=== PATIENT | male | born 1955 | race Caucasian/White ===

== ENCOUNTER 2017-05-23 11:00 | Emergency (ER) | payer MEDICAID, OTHER ==
[~2017-05-23] VITALS: Ht 165.1 cm; Wt 68.5 kg
[2017-05-23 11:07] VITALS: Ht 165.1 cm; Wt 68.5 kg
[2017-05-23] MEDS ORDERED: morphine 4 MG/ML VIAL IV STA (11:39)
--- NOTE | 2017-05-23 11:44 | ERD ---
ER Documentation Chief Complaint Date/Time DATE: 05/23/17 TIME: 11:42 Chief Complaint Complains of a fall from a 10 foot ladder HPI Patient is a 62-year-old male who presents with sudden onset, constant, moderate pain to his head, posterior neck and upper back, and anterior chest after slipping from a scaffolding and falling 10 feet to the ground. He denies loss of consciousness. He denies shortness of breath. He denies numbness or tingling in his extremities. He denies abdominal pain or low back pain. He denies vomiting. Last tetanus is unknown. ROS All systems reviewed and are negative except as per history of present illness. Medications Home Meds Active Scripts Bacitracin-Polymyxin* (Polysporin* Topical) 28.35 Gm Oint, 1 APPLIC TOP BID for 5 Days, TUB Prov:IRENE ERWIN MD 05/23/17 Tramadol HCl (Tramadol HCl) 50 Mg Tablet, 50 MG PO Q4 Y for PAIN, #20 TAB Prov:IRENE ERWIN MD 05/23/17 Allergies Allergies: Coded Allergies: No Known Allergy (Unverified , 05/23/17) PMhx/Soc Past medical history: Denies Past surgical history: Denies Social history: Denies tobacco or alcohol Medical and Surgical Hx: pt denies Medical Hx, pt denies Surgical Hx History of Surgery: No Anesthesia Reaction: No Hx Neurological Disorder: No Hx Respiratory Disorders: No Hx Cardiac Disorders: No Hx Psychiatric Problems: No Hx Miscellaneous Medical Probl: No Hx Alcohol Use: No Hx Substance Use: No Hx Tobacco Use: No Smoking Status: Never smoker FmHx Family History: No coronary disease, No diabetes Physical Exam Vitals Vital Signs Date Time Temp Pulse Resp B/P Pulse Ox O2 Delivery O2 Flow Rate FiO2 05/23/17 14:32 98.3 92 20 140/94 98 Room Air 05/23/17 13:39 98.3 81 20 146/95 99 Room Air 05/23/17 11:07 98.3 89 20 157/84 97 Physical Exam Const: Alert, no acute distress Head: Abrasion to vertex of scalp. Eyes: Normal Conjunctiva, no pallor, no icterus. Pupils equal round and reactive. ENT: Normal External Ears, Nose and Mouth. Mucous membranes moist Neck: Midline tenderness. Bruising to skin overlying T1. Resp: Clear to auscultation bilaterally, no wheezes, trace rales at right base. Cardio: Regular rate and rhythm, no murmurs. Sternal tenderness on direct palpation, and on palpation of lateral ribs. Abd: Soft, non tender, non distended. Normal bowel sounds Skin: No petechiae or rashes Back: Upper thoracic midline tenderness. No flank tenderness. No lumbar tenderness. Ext: No cyanosis, or edema Neur: Awake and alert, strength and sensation full in 4 extremities. Psych: Normal Mood and Affect Result Diagram: 05/23/17 1200 05/23/17 1200 Results 24 hrs Laboratory Tests Test 05/23/17 12:00 White Blood Count 14.110^3/ul Red Blood Count 4.7610^6/ul Hemoglobin 14.6g/dl Hematocrit 43.7% Mean Corpuscular Volume 91.8fl Mean Corpuscular Hemoglobin 30.7pg Mean Corpuscular Hemoglobin Concent 33.4g/dl Red Cell Distribution Width 12.5% Platelet Count 78345^3/UL Mean Platelet Volume 10.1fl Neutrophils % 82.1% Lymphocytes % 10.1% Monocytes % 6.5% Eosinophils % 0.4% Basophils % 0.3% Nucleated Red Blood Cells % 0.0/100WBC Neutrophils # 11.610^3/ul Lymphocytes # 1.410^3/ul Monocytes # 0.910^3/ul Eosinophils # 0.110^3/ul Basophils # 0.010^3/ul Nucleated Red Blood Cells # 0.010^3/ul Prothrombin Time 12.6Sec Prothrombin Time Ratio 1.0 INR International Normalized Ratio 0.94 Activated Partial Thromboplast Time 24.9Sec Sodium Level 140mmol/L Potassium Level 3.6mmol/L Chloride Level 104mmol/L Carbon Dioxide Level 27mmol/L Anion Gap 13 Blood Urea Nitrogen 13mg/dl Creatinine 0.93mg/dl Glucose Level 127mg/dl Calcium Level 9.3mg/dl Troponin I < 0.012ng/ml Current Medications Medications (Trade) Dose Ordered Sig/Danny Route PRN Reason Start Time Stop Time Status Last Admin Dose Admin Morphine Sulfate (morphine) 4 mg ONCE STAT IV 05/23/17 11:39 05/23/17 11:43 DC 05/23/17 11:59 Diphtheria/ Tetanus/Acell Pertussis (Adacel) 0.5 ml ONCE ONCE IM* 6/23/17 12:00 05/23/17 12:01 DC 05/23/17 12:00 Procedures/MDM EKG read by me: Time 1157, rate 100 Rhythm: Normal sinus [place]: Normal Intervals: Normal ST-T waves: no ischemic changes Ectopy: No Q-waves: No Impression: No evidence of ischemia or arrhythmia MDM: Patient is a 62-year-old male who fell from a 10 foot scaffolding after the scaffolding became unsteady and he lost his balance. There is no loss of consciousness or symptoms that preceded his fall. He landed on his head, had neck and thoracic spine tenderness, and complained of sternal tenderness. CTs of the head, cervical spine, and chest were unremarkable. There are no evidence of extremity injuries, lumbar spine or abdominal or pelvic injuries on exam. The patient is hemodynamically stable. He does not have any postconcussive symptoms. He has an abrasion to his scalp. His tetanus is updated. He will be discharged with tramadol for pain, topical antibiotic for abrasions, and instructions for return precautions in case of worsening symptoms. Departure Diagnosis: Primary Impression: Head contusion Encounter type: initial encounter Contusion of head detail: scalp Qualified Code: S00.03XA - Contusion of scalp, initial encounter Additional Impressions: Chest wall pain Fall with significant injury Encounter type: initial encounter Qualified Code: W19.XXXA - Fall with significant injury, initial encounter Condition: Stable IRENE ERWIN MD May 23, 2017 11:44
[2017-05-23] MEDS ORDERED: DIPHTH/TET/ACEL PERTUSS (ADULT) 0.5 ML VIAL IM* ONE (12:00)
[2017-05-23 12:11] LABS: ADD SCAN DIFF NO
[2017-05-23 12:13] LABS: BASOPHILS % 0.3 % (0.0-2.0); EOSINOPHILS # 0.1 10^3/ul (0.0-0.5); EOSINOPHILS % 0.4 % (0.0-7.0); HEMATOCRIT 43.7 % (42.0-52.0); HEMOGLOBIN 14.6 g/dl (14.0-18.0); LYMPHOCYTES # 1.4 10^3/ul (0.8-2.9); LYMPHOCYTES % 10.1 % (15.0-51.0); MEAN CORPUSCULAR HEMOGLOBIN 30.7 pg (29.0-33.0); MEAN CORPUSCULAR HGB CONC 33.4 g/dl (32.0-37.0); MEAN CORPUSCULAR VOLUME 91.8 fl (82.0-101.0); MEAN PLATELET VOLUME 10.1 fl (7.4-10.4); MONOCYTE # 0.9 10^3/ul (0.3-0.9); MONOCYTES % 6.5 % (0.0-11.0); NEUTROPHIL # 11.6 10^3/ul (1.6-7.5); NEUTROPHILS % 82.1 % (39.0-77.0); PLATELET COUNT 212 10^3/UL (140-415); RED BLOOD COUNT 4.76 10^6/ul (4.70-6.10); RED CELL DISTRIBUTION WIDTH 12.5 % (11.5-14.5); WHITE BLOOD COUNT 14.1 10^3/ul (4.8-10.8)
[2017-05-23 12:29] LABS: ANION GAP 13 (8-16); BLOOD UREA NITROGEN 13 mg/dl (7-20); CALCIUM 9.3 mg/dl (8.4-10.2); CARBON DIOXIDE 27 mmol/L (21-31); CHLORIDE 104 mmol/L (97-110); CREATININE 0.93 mg/dl (0.61-1.24); GLUCOSE 127 mg/dl (70-220); POTASSIUM 3.6 mmol/L (3.5-5.1); SODIUM 140 mmol/L (135-144)
[2017-05-23 12:30] LABS: INR 0.94; PROTIME 12.6 Sec (12.2-14.2)
[2017-05-23 12:31] LABS: PARTIAL THROMBOPLASTIN TIME 24.9 Sec (25.0-35.0)
[2017-05-23 12:51] LABS: TROPONIN-I < 0.012 ng/ml (0.00-0.12)
--- NOTE | 2017-05-23 13:36 | RADRPT ---
PROCEDURE: CT Brain without contrast. CLINICAL INDICATION: Trauma due to a fall from the roof. Headache. TECHNIQUE: A CT of the brain without contrast was performed utilizing axial sections from the skul l base through the vertex. The patient was scanned without intravenous contrast enhancement. Sagitta l and coronal reformatted images were obtained using the data from the axial images. Total exam DLP is 630.20 mGy-cm. CTDIvol is 43.86 mGy. One or more of the following dose reduction techniques we re used: Automated exposure control, adjustment of the mA and/or kV according to patient size, use o f iterative reconstruction technique. COMPARISON: None available FINDINGS: There is normal camilo-white matter differentiation. The ventricles and cisterns are normal. There is no intracranial hemorrhage. There is a midline posterior fossa benign arachnoid cyst measu ring 2.2 x 3.8 cm. There is no other intracranial space-occupying lesion. There is no skull fracture or lytic lesion. IMPRESSION: 1. Midline posterior fossa benign arachnoid cyst measuring 2.2 x 3.8 cm. 2. Otherwise unremarkable noncontrast CT scan of the brain. 3. No intracranial hemorrhage. RPTAT: QQ .Jared Ashley MD, MD Date Time Electronically viewed and signed by .Jared Ashley MD, on 05/23/2017 13:35 .R/
--- NOTE | 2017-05-23 13:39 | RADRPT ---
PROCEDURE: CT Cervical Spine without contrast. CLINICAL INDICATION: Trauma due to falling off the roof. Neck pain. TECHNIQUE: Helical axial sections were obtained through the cervical spine without intravenous con trast enhancement. Sagittal and coronal reformatted images were accomplished using the data from th e axial images. Total exam DLP is 434.56 mGy-cm. CTDIvol is 22.15 mGy. One or more of the followi ng dose reduction techniques were used: Automated exposure control, adjustment of the mA and/or kV a ccording to patient size, use of iterative reconstruction technique. COMPARISON: No prior studies are available for comparison. FINDINGS: There is normal stature and alignment of the vertebrae. There is no fracture. The disk height is normal. There is right-sided bony foraminal stenosis at C4-5 due to hypertrophy of the right facet joint and uncovertebral joint. The neural foramina are otherwise normal. There is no lytic or blastic lesion. The paravertebral soft tissues are normal. IMPRESSION: 1. Right-sided bony foraminal stenosis at C4-5. 2. No fracture or malalignment. 3. Otherwise unremarkable CT scan of the cervical spine. RPTAT: QQ .Jared Ashley MD, MD Date Time Electronically viewed and signed by .Jared Ashley MD, MD on 05/23/2017 13:39 .R/
--- NOTE | 2017-05-23 14:01 | RADRPT ---
PROCEDURE: CT Chest without contrast. CLINICAL INDICATION: Chest pain after trauma. TECHNIQUE: CT scan of the chest without contrast was performed on a multi-slice CT scanner. The p atient was scanned without intravenous contrast. Coronal and sagittal reformatted images were obtai george from the axial source images. The total exam CTDI equals 9.58 mGy and the total exam DLP equals 382.9 mGy-cm. COMPARISON: None available FINDINGS: There are no enlarged mediastinal or axillary lymph nodes identified. The camacho are not well evaluat e given lack of intravenous contrast. There is no evidence of pneumomediastinum or mediastinal hemat kathy. The heart is normal in size, and there is no pericardial effusion. Atherosclerotic calcificatio ns are present There is mild to moderate bilateral posterior lower lobe subsegmental atelectasis and/or scarring. No pulmonary infiltrate or pulmonary contusion is identified. There is a small calcified granuloma in the base of the right upper lobe no pulmonary mass or suspicious pulmonary nodules identified. T here is no pneumothorax or hemothorax. No pleural effusion is identified. The partially imaged subdiaphragmatic contents are within normal limits. The bones are intact. Specifically, there is no evidence of rib fracture or the thoracic vertebral b shirley fracture. There are mild degenerative change of the spine. IMPRESSION: 1. Mild bilateral posterior lower lobe subsegmental atelectasis and/or scarring. 2. Atherosclerotic vascular disease. 3. No CT evidence of traumatic injury in the chest. RPTAT: KK .Artur Coley MD, MD Date Time Electronically viewed and signed by .Artur Coley MD, MD on 05/23/2017 14:01 .B/
[2017-05-23 14:32] VITALS: BP 140/94; PULSE 92; RESP 20; TEMP 98.3
[2017-05-23] MEDS ORDERED: TRAM50TA2 PO (14:36)
[2017-05-23] MEDS ORDERED: POLY30OI TOP (14:36)
== END 2017-05-23 14:50 | disposition home or self-care (01) ==
LOC: E/R 11:00
DX: S00.03XA Contusion of scalp, initial encounter (principal); S29.9XXA Unspecified injury of thorax, initial encounter; R07.89 Other chest pain; W11.XXXA Fall on and from ladder, initial encounter; Y92.9 Unspecified place or not applicable; Z23 Encounter for immunization
CPT/HCPCS: 36415; 70450; 71250; 72125; 80048; 84484; 85025; 85610; 85730; 90471; 90715; 93005; 96374; J2270; Z7502

== ENCOUNTER 2017-06-24 10:08 | Emergency (ER) | payer MEDICAID, OTHER ==
[~2017-06-24] VITALS: Ht 167.6 cm; Wt 69.0 kg
[~2017-06-24 10:08] MED LIST: POLY30OI TOP; TRAM50TA2 PO
[2017-06-24 10:10] VITALS: Ht 167.6 cm; Wt 69.0 kg
[2017-06-24 10:49] LABS: BASOPHIL # 0.1 10^3/ul (0.0-0.1); BASOPHILS % 0.8 % (0.0-2.0); EOSINOPHILS # 0.5 10^3/ul (0.0-0.5); EOSINOPHILS % 7.5 % (0.0-7.0); HEMATOCRIT 44.9 % (42.0-52.0); HEMOGLOBIN 15.4 g/dl (14.0-18.0); LYMPHOCYTES # 3.2 10^3/ul (0.8-2.9); LYMPHOCYTES % 44.8 % (15.0-51.0); MEAN CORPUSCULAR HEMOGLOBIN 30.7 pg (29.0-33.0); MEAN CORPUSCULAR HGB CONC 34.3 g/dl (32.0-37.0); MEAN CORPUSCULAR VOLUME 89.4 fl (82.0-101.0); MEAN PLATELET VOLUME 10.4 fl (7.4-10.4); MONOCYTE # 0.6 10^3/ul (0.3-0.9); MONOCYTES % 8.9 % (0.0-11.0); NEUTROPHIL # 2.7 10^3/ul (1.6-7.5); NEUTROPHILS % 37.7 % (39.0-77.0); PLATELET COUNT 209 10^3/UL (140-415); RED BLOOD COUNT 5.02 10^6/ul (4.70-6.10); RED CELL DISTRIBUTION WIDTH 12.2 % (11.5-14.5); WHITE BLOOD COUNT 7.1 10^3/ul (4.8-10.8)
[2017-06-24 11:21] LABS: ANION GAP 20 (8-16); BLOOD UREA NITROGEN 12 mg/dl (7-20); CALCIUM 9.5 mg/dl (8.4-10.2); CARBON DIOXIDE 25 mmol/L (21-31); CHLORIDE 102 mmol/L (97-110); CREATININE 0.88 mg/dl (0.61-1.24); GLUCOSE 96 mg/dl (70-220); POTASSIUM 3.8 mmol/L (3.5-5.1); SODIUM 143 mmol/L (135-144)
[2017-06-24 11:32] LABS: INR 0.94; PROTIME 12.6 Sec (12.2-14.2)
[2017-06-24 11:33] LABS: PARTIAL THROMBOPLASTIN TIME 28.5 Sec (25.0-35.0); TROPONIN-I < 0.012 ng/ml (0.00-0.12)
[2017-06-24] MEDS ORDERED: IBUP-1542 PO (11:42)
--- NOTE | 2017-06-24 11:43 | RADRPT ---
PROCEDURE: XR Chest. CLINICAL INDICATION: Chest Pain. TECHNIQUE: Single frontal view of the chest was obtained COMPARISON: CT chest 05/23/2017 FINDINGS: The heart and mediastinum are within normal limits. Mild ill-defined opacities at both lung bases are compatible with mild bibasilar atelectasis and / o r scarring. Superimposed left basilar early consolidation cannot be completely excluded. No pneumothorax or significant pleural effusion is seen. No evidence of significant pulmonary vascular congestion. There are degenerative changes of the visualized spine. IMPRESSION: Mild bibasilar ill-defined opacities (greater on the left and right), likely representing mild bibas ilar atelectasis and / or scarring, as seen on prior CT chest. Superimposed left basilar early cons olidation cannot be completely excluded. RPTAT: PP Physician Ifrah Date Time Electronically viewed and signed by Tom Saleh Physician on 06/24/2017 11:43 RADHAMES/
--- NOTE | 2017-06-24 11:46 | ERD ---
ER Documentation Chief Complaint Date/Time DATE: 06/24/17 TIME: 1016 Chief Complaint left sided chest pain x 2 days HPI 62-year-old male presents the emergency department complaining of left-sided chest pain. Patient was in his usual state of health until approximately 4 weeks ago which time he fell and hit his back and chest. He states he had x-rays of his back which were normal but never had x-rays of his chest. He has been having a nonspecific somatic type discomfort to the left side of his chest since then. Over the last 2 days, to been associated with a burning in that area. The pain is worse when he moves. It is associated with no palpitations, shortness of breath or diaphoresis. Patient reports no nausea, vomiting, fevers. Patient reports no cough. Currently the patient's pain is described as mild. ROS All systems reviewed and are negative except as per history of present illness. Medications Home Meds Active Scripts Ibuprofen* (Motrin*) 600 Mg Tab, 600 MG PO Q6H Y for PAIN AND OR ELEVATED TEMP, #30 TAB Prov:JEAN-CLAUDE SANCHEZ 06/24/17 Discontinued Scripts Bacitracin-Polymyxin* (Polysporin* Topical) 28.35 Gm Oint, 1 APPLIC TOP BID for 5 Days, TUB Prov:IRENE ERWIN MD 05/23/17 Tramadol HCl (Tramadol HCl) 50 Mg Tablet, 50 MG PO Q4 Y for PAIN, #20 TAB Prov:IRENE ERWIN MD 05/23/17 Allergies Allergies: Coded Allergies: No Known Allergy (Unverified , 06/24/17) PMhx/Soc Medical and Surgical Hx: pt denies Medical Hx, pt denies Surgical Hx History of Surgery: No Anesthesia Reaction: No Hx Neurological Disorder: No Hx Respiratory Disorders: No Hx Cardiac Disorders: No Hx Psychiatric Problems: No Hx Miscellaneous Medical Probl: No Hx Alcohol Use: No Hx Substance Use: No Hx Tobacco Use: No Smoking Status: Never smoker FmHx Noncontributory with no history of coronary disease Physical Exam Vitals Vital Signs Date Time Temp Pulse Resp B/P Pulse Ox O2 Delivery O2 Flow Rate FiO2 06/24/17 10:43 93 17 137/100 97 Room Air 06/24/17 10:10 98.1 101 18 153/91 98 Physical Exam GENERAL: The patient is well developed and appropriate for usual state of health in no apparent distress HEENT: Pupils equal, round, and reactive to light. EOMI. There is no scleral icterus. NECK: C-spine is soft and supple, there is no meningismus. There is no cervical lymphadenopathy. LUNGS: Clear to auscultation bilaterally. There are no rales, wheezes or rhonchi. No significant chest wall tenderness, crepitus or instability HEART: Regular rate and rhythm, no murmurs, clicks, rubs or gallops. ABDOMEN: Soft, non-tender, non-distended. There are bowel sounds in all four quadrants. No rebound or guarding. EXTREMITIES: There is no peripheral cyanosis or edema. No focal swelling or erythema. NEURO: The patient moves all four extremities with 5/5 strength. Cranial nerves II - XII are intact. Normal gait. Alert and oriented SKIN: There is no apparent rash or petechiae. HEME/LYMPHATIC: There is no evidence of excessive bruising or lymphedema. PSYCHIATRIC: The patient does not appear anxious or depressed. Result Diagram: 06/24/17 1030 06/24/17 1030 Results 24 hrs Laboratory Tests Test 06/24/17 10:30 White Blood Count 7.110^3/ul Red Blood Count 5.0210^6/ul Hemoglobin 15.4g/dl Hematocrit 44.9% Mean Corpuscular Volume 89.4fl Mean Corpuscular Hemoglobin 30.7pg Mean Corpuscular Hemoglobin Concent 34.3g/dl Red Cell Distribution Width 12.2% Platelet Count 94147^3/UL Mean Platelet Volume 10.4fl Neutrophils % 37.7% Lymphocytes % 44.8% Monocytes % 8.9% Eosinophils % 7.5% Basophils % 0.8% Nucleated Red Blood Cells % 0.0/100WBC Neutrophils # 2.710^3/ul Lymphocytes # 3.210^3/ul Monocytes # 0.610^3/ul Eosinophils # 0.510^3/ul Basophils # 0.110^3/ul Nucleated Red Blood Cells # 0.010^3/ul Prothrombin Time 12.6Sec Prothrombin Time Ratio 1.0 INR International Normalized Ratio 0.94 Activated Partial Thromboplast Time 28.5Sec Sodium Level 143mmol/L Potassium Level 3.8mmol/L Chloride Level 102mmol/L Carbon Dioxide Level 25mmol/L Anion Gap 20 Blood Urea Nitrogen 12mg/dl Creatinine 0.88mg/dl Glucose Level 96mg/dl Calcium Level 9.5mg/dl Troponin I < 0.012ng/ml Procedures/MDM Patient was taken to a room, seen and evaluated. Comfort measures were initiated. Diagnostic tests were ordered and reviewed. 3 LEAD RHYTHM STRIP: Normal sinus rhythm without ectopy EK lead EKG reviewed by myself: Normal Sinus Rhythm Normal [place] and intervals No ST elevation, depression, or T wave inversion Impression: Normal EKG RADIOLOGY: reviewed with the radiologist REEVALUATION: Patient remains comfortable and nonischemic appearing MEDICAL DECISION MAKING: Patient presents with chest pain of uncertain etiology. Differential diagnosis considered includes acute myocardial infarction , pulmonary embolism, as well as vascular and pulmonary concerns. I have reviewed the patient's clinical risk factors, EKG, lab studies and imaging. At this time, patient's history and clinical examination is most likely consistent with a musculoskeletal cause of chest pain. Patient has no significant ischemic risk factors and a normal EKG as well as a negative troponin. At this time, this appears to be a very low risk presentation for cardiac concerns. X-ray has ruled out significant pulmonary concerns and patient has no risk factors for pulmonary embolism. After discussing this with the patient, patient is comfortable as am I that the patient can be further evaluated as an outpatient with comfort measures. Departure Diagnosis: Primary Impression: Chest pain Condition: Stable Patient Instructions: Chest Pain, Uncertain Cause Referrals: OMAR WAY MD (PCP) Additional Instructions: See your doctor for follow-up as discussed. Take a copy of your test results, if appropriate, to this follow-up visit. See your doctor or return here if your symptoms do not improve as expected. At any time, please return to the emergency department for any change or worsening in her symptoms. JEAN-CLAUDE SANCHEZ Jun 24, 2017 11:46
[2017-06-24 12:17] VITALS: BP 130/90; PULSE 82; RESP 17
== END 2017-06-24 12:22 | disposition home or self-care (01) ==
LOC: E/R 10:08
DX: R07.9 Chest pain, unspecified (principal)
CPT/HCPCS: 36415; 71010; 80048; 84484; 85025; 85610; 85730; 93005

== ENCOUNTER 2018-12-15 11:37 | Inpatient (IN) | payer OTHER ==
[~2018-12-15] VITALS: Ht 170.2 cm; Wt 68.6 kg
[2018-12-15] VITALS (7 sets, daily range): BP systolic 131–179; BP diastolic 75–95; PULSE 68–75; RESP 18–22; Ht 170.2 cm; Wt 68.6 kg
[~2018-12-15 11:37] MED LIST changes: +IBUP-1542 PO; -POLY30OI TOP; -TRAM50TA2 PO
--- NOTE | 2018-12-15 13:36 | ERD ---
ER Documentation Chief Complaint Chief Complaint RLQ PAIN HPI The patient is a 63-year-old male, presenting to the ER because of right lower quadrant abdominal pain intermittently for the last 3 days, worse today, went to see his physician who referred him to the ER. He denies fever, chills, neck pain, chest pain, dyspnea, vomiting, dysuria, diarrhea. He does not smoke, drinks socially Past medical/surgical history: None ROS All systems reviewed and are negative except as per history of present illness. Medications Home Meds Discontinued Scripts Ibuprofen* (Motrin*) 600 Mg Tab, 600 MG PO Q6H PRN for PAIN AND OR ELEVATED TEMP, #30 TAB Prov:JEAN-CLAUDE SANCHEZ 06/24/17 Allergies Allergies: Coded Allergies: No Known Allergy (Unverified , 12/15/18) PMhx/Soc Medical and Surgical Hx: pt denies Medical Hx, pt denies Surgical Hx History of Surgery: No Anesthesia Reaction: No Hx Neurological Disorder: No Hx Respiratory Disorders: No Hx Cardiac Disorders: No Hx Psychiatric Problems: No Hx Miscellaneous Medical Probl: No Hx Alcohol Use: Yes (OOC) Hx Substance Use: No Hx Tobacco Use: No Smoking Status: Never smoker Physical Exam Vitals Vital Signs Date Temp Pulse Resp B/P (MAP) Pulse Ox O2 O2 Flow FiO2 Time Delivery Rate 12/15/18 97.8 70 16 138/79 99 Room Air 17:00 (98) 12/15/18 97.8 95 18 134/81 98 11:48 (98) Physical Exam Const: No acute distress. Head: Atraumatic. Eyes: Normal Conjunctiva. ENT: Normal External Ears, Nose and Mouth. Neck: Full range of motion. No meningismus. Resp: Clear to auscultation bilaterally. Cardio: Regular rate and rhythm. Abd: Soft, non distended, normal bowel sounds, mild to moderate right lower quadrant tenderness, no rigidity/rebound/CVA tenderness Skin: No petechiae or rashes. Back: No midline or flank tenderness. Ext: No cyanosis, or edema. Neur: Awake and alert. No focal deficit Psych: Normal Mood and Affect. Result Diagram: 12/15/18 1400 12/15/18 1400 Results 24 hrs Laboratory Tests Test 12/15/18 14:00 12/15/18 14:13 White Blood Count 8.5 10^3/ul Red Blood Count 5.02 10^6/ul Hemoglobin 15.4 g/dl Hematocrit 46.2 % Mean Corpuscular Volume 92.0 fl Mean Corpuscular Hemoglobin 30.7 pg Mean Corpuscular Hemoglobin Concent 33.3 g/dl Red Cell Distribution Width 12.3 % Platelet Count 251 10^3/UL Mean Platelet Volume 9.7 fl Immature Granulocytes % 0.200 % Neutrophils % 60.1 % Lymphocytes % 30.0 % Monocytes % 8.2 % Eosinophils % 1.1 % Basophils % 0.4 % Nucleated Red Blood Cells % 0.0 /100WBC Immature Granulocytes # 0.020 10^3/ul Neutrophils # 5.1 10^3/ul Lymphocytes # 2.6 10^3/ul Monocytes # 0.7 10^3/ul Eosinophils # 0.1 10^3/ul Basophils # 0.0 10^3/ul Nucleated Red Blood Cells # 0.0 10^3/ul Sodium Level 143 mmol/L Potassium Level 4.1 mmol/L Chloride Level 99 mmol/L Carbon Dioxide Level 30 mmol/L Anion Gap 14 Blood Urea Nitrogen 14 mg/dl Creatinine 0.80 mg/dl Est Glomerular Filtrat Rate mL/min > 60 mL/min Glucose Level 100 mg/dl Calcium Level 9.5 mg/dl Total Bilirubin 0.3 mg/dl Direct Bilirubin 0.00 mg/dl Indirect Bilirubin 0.3 mg/dl Aspartate Amino Transf (AST/SGOT) 16 IU/L Alanine Aminotransferase (ALT/SGPT) 20 IU/L Alkaline Phosphatase 115 IU/L Total Protein 8.6 g/dl Albumin 4.6 g/dl Globulin 4.00 g/dl Albumin/Globulin Ratio 1.15 Lipase 75 U/L Bedside Urine pH (LAB) 5.5 Bedside Urine Protein (LAB) Negative Bedside Urine Glucose (UA) Negative Bedside Urine Ketones (LAB) Negative Bedside Urine Blood Negative Bedside Urine Nitrite (LAB) Negative Bedside Urine Leukocyte Esterase (L Negative Current Medications Medications Dose Sig/Danny Start Time Status Last (Trade) Ordered Route PRN Stop Time Admin Dose Reason Admin Piperacillin 100 ml @ ONCE ONCE 12/15/18 DC 12/15/18 Sod/ 200 mls/hr IVPB 16:00 16:24 Tazobactam 12/15/18 16:29 Sod Sodium 1,000 ml @ Q1H ONCE 12/15/18 DC 12/15/18 Chloride 1,000 mls/hr IV 16:00 16:24 12/15/18 16:59 Morphine 2 mg ONCE STAT 12/15/18 DC Sulfate IV 15:45 (morphine) 12/15/18 15:47 Ondansetron 4 mg ONCE STAT 12/15/18 DC HCl (Zofran IV 15:45 Inj) 12/15/18 15:47 Procedures/MDM [place] [id number] Radiology Main Line: [phone] DIAGNOSTIC IMAGING REPORT Patient: SOPHY ARENAS : 1955 Age: 63 Sex: M MR #: [id number] DOS: 12/15/18 1345 Ordering MD: TISH HARDIN MD Location: E/R Room/Bed: PROCEDURE: CT Abdomen and Pelvis without contrast. CLINICAL INDICATION: Abdominal pain. TECHNIQUE: Routine axial tomographic images of the abdomen and pelvis were obtained from the domes of the diaphragm to the symphysis pubis. The patient was scanned withoutoral or intravenous contrast. Coronal and sagittal reformatted images were obtained from the axial source images. Images were reviewed on a high-resolution PACS workstation. The total exam CTDI equals 9.80 mGy and the total exam DLP equals 500.27 mGy-cm. One or more of the following dose reduction techniques were used: Automated exposure control, adjustment of the mA and / or kV according to patient size, or use of iterative reconstruction technique. DICOM images are available. COMPARISON: None. FINDINGS: The visualized portions of the lung bases demonstrate small blebs. Evaluation of the intra-abdominal solid organs is somewhat limited on this noncontrast examination. The liver appears normal in size. There is no intra or extrahepatic biliary dilatation. The gallbladder is unremarkable by CT criteria. The spleen, pancreas, and adrenal glands are unremarkable. The kidneys are symmetric in size. No renal, ureteral, or bladder calculi are identified. No perinephric inflammatory changes are identified. The urinary bladder is grossly unremarkable. The bowel demonstrates normal course and caliber. There is no evidence of bowel obstruction. The appendix is distended measuring 12 mm in diameter. There is periappendiceal fat stranding. No intraperitoneal free fluid, free air or abscess is identified. The prostate is mildly enlarged. No retroperitoneal, mesenteric, or inguinal lymphadenopathy is identified. The aorta is normal in caliber. There are small bilateral fat containing inguinal hernias. The osseous structures demonstrate degenerative changes of the spine. No significant subcutaneous soft tissue abnormalities are seen. IMPRESSION: 1. Acute appendicitis. No definite abscess is seen, although evaluation is limited secondary to absence of oral and IV contrast. 2. Mild enlargement prostate. 3. Small bilateral fat containing inguinal hernias. RPTAT: HH .Consuelo Orozco MD, MD Date Time Electronically viewed and signed by .Consuelo Orozco MD, MD on 12/15/2018 14:17 .G/ CC: TISH HARDIN MD [phone] MEDICAL MAKING DECISION: The patient is a 63-year-old male, presenting with acute appendicitis, was treated with Zosyn IV, 1 L IV, morphine 2 mg IV for pain, Zofran4 mg IV for nausea with good response The differential diagnoses considered include but are not limited to cholelithi asis, cholecystitis, choledocholithiasis, cholangitis, pancreatitis, hepatitis, gastritis, peptic ulcer disease, gastric ulcer, appendicitis, cystitis, diverticulitis, partial small bowel obstruction. Consultation: I discussed the patient with the on-call general surgeon Dr. Mehta at 4:30 PM, who was made aware of the lab, the treatment, the patient condition. He accepted the consult The differential diagnoses considered include but are not limited to cholelithiasis, cholecystitis, choledocholithiasis, cholangitis, pancreatitis, hepatitis, gastritis, peptic ulcer disease, gastric ulcer, appendicitis, cystitis, diverticulitis, partial small bowel obstruction. Departure Diagnosis: Primary Impression: Appendicitis Condition: Stable Comments The patient's blood pressure was elevated (>120/80) but appears stable without evidence of hypertension emergency or urgency. The patient was counseled about the risks of hypertension and urged to pursue outpatient monitoring and therapy within a week with their primary care physician. I discussed the findings with the patient. I discussed the patient with the hospitalist Dr Randall at 5:20 pm . who was made aware of the lab, the treatment, the patient condition. The patient is admitted to [facility] Disclaimer: Inadvertent spelling and grammatical errors are likely due to EHR/dictation software use and do not reflect on the overall quality of patient care. Also, please note that the electronic time recorded on this note does not necessarily reflect the actual time of the patient encounter. TISH HARDIN MD Dec 15, 2018 13:36
[2018-12-15] MEDS ORDERED: morphine 2 MG INJ IV STA (15:45)
[2018-12-15] MEDS ORDERED: ONDANSETRON 4 MG INJ IV STA (15:45)
[2018-12-15] MEDS ORDERED: PIPER-TAZO 3.375 GM IV (PMX) 100 ML IVPB ONE (16:00)
[2018-12-15] MEDS ORDERED: SOD CHLORIDE 0.9% 1,000 ML IV ONE (16:00)
[2018-12-15] MEDS ORDERED: SOD CHLORIDE 0.45% 1,000 ML IV SCH (19:03)
[2018-12-15] MEDS ORDERED: ONDANSETRON 4 MG INJ IV PRN ×3 (19:30→23:30)
[2018-12-15] MEDS ORDERED: morphine SULFATE/PF (2 MG/2 ML) SYG IV PRN (19:30)
[2018-12-15] MEDS ORDERED: NACL 0.9% 3 ML SYG IV SCH (19:30)
[2018-12-15] MEDS ORDERED: ACETAMINOPHEN 325 MG TAB PO PRN ×2 (19:30→23:30)
--- NOTE | 2018-12-15 20:12 | CONS ---
Date/Time of Note Date/Time of Note DATE: 12/15/18 TIME: 20:09 Assessment/Plan Assessment/Plan Assessment/Plan acute appendicitis , without evidence of perforation recommend laparoscopic appendectomy , possible open . risks benefots discussed . Patient understand sand wishes to proceed Result Diagram: 12/15/18 1400 12/15/18 1400 Results 24hrs Laboratory Tests Test 12/15/18 14:00 12/15/18 14:13 White Blood Count 8.5 Red Blood Count 5.02 Hemoglobin 15.4 Hematocrit 46.2 Mean Corpuscular Volume 92.0 Mean Corpuscular Hemoglobin 30.7 Mean Corpuscular Hemoglobin Concent 33.3 Red Cell Distribution Width 12.3 Platelet Count 251 # Mean Platelet Volume 9.7 Immature Granulocytes % 0.200 Neutrophils % 60.1 Lymphocytes % 30.0 Monocytes % 8.2 Eosinophils % 1.1 Basophils % 0.4 Nucleated Red Blood Cells % 0.0 Immature Granulocytes # 0.020 Neutrophils # 5.1 Lymphocytes # 2.6 Monocytes # 0.7 Eosinophils # 0.1 Basophils # 0.0 Nucleated Red Blood Cells # 0.0 Sodium Level 143 Potassium Level 4.1 Chloride Level 99 Carbon Dioxide Level 30 Anion Gap 14 H Blood Urea Nitrogen 14 Creatinine 0.80 Est Glomerular Filtrat Rate mL/min > 60 Glucose Level 100 Calcium Level 9.5 Total Bilirubin 0.3 Direct Bilirubin 0.00 Indirect Bilirubin 0.3 Aspartate Amino Transf (AST/SGOT) 16 Alanine Aminotransferase (ALT/SGPT) 20 Alkaline Phosphatase 115 Total Protein 8.6 H Albumin 4.6 Globulin 4.00 H Albumin/Globulin Ratio 1.15 Lipase 75 Bedside Urine pH (LAB) 5.5 Bedside Urine Protein (LAB) Negative Bedside Urine Glucose (UA) Negative Bedside Urine Ketones (LAB) Negative Bedside Urine Blood Negative Bedside Urine Nitrite (LAB) Negative Bedside Urine Leukocyte Esterase (L Negative Consultation Date/Type/Reason Admit Date/Time Dec 15, 2018 at 17:25 Date of Consultation: Dec 15, 2018 Type of Consult surgical consult Reason for Consultation abdominal pain , suspect acute appendicitis Hx of Present Illness patient presented to the ER with one of worsening abdominal pain . no prior symptoms CT shows 12 mm appendix with appendicolith WBC 8.5 Past Medical History Medications Current Medications Sodium Chloride 1,000 ml @ 75 mls/hr [id number] IV ; Start 12/15/18 at 19:03 IV Flush (NS 3 ml) 3 ml PER PROTOCOL IV ; Start 12/15/18 at 19:30 Ondansetron HCl (Zofran Inj) 4 mg Q4H PRN IV NAUSEA AND/OR VOMITING; Start 12/15/18 at 19:30 Acetaminophen (Tylenol Tab) 650 mg Q6H PRN PO PAIN LEVEL 1-3 OR FEVER; Start 12/15/18 at 19:30 Pantoprazole (Protonix Iv) 40 mg DAILY@06 IV ; Start 12/16/18 at 06:00 Piperacillin Sod/ Tazobactam Sod 100 ml @ 200 mls/hr TID IVPB ; Start 12/15/18 at 21:00 Morphine Sulfate (morphine SULFATE (PF)) 2 mg Q4H PRN IV SEVERE PAIN LEVEL 7- 10; Start 12/15/18 at 19:30 Allergies: Coded Allergies: No Known Allergy (Unverified , 12/15/18) Social History Smoking Status: Never smoker Exam/Review of Systems Vital Signs Vitals Vital Signs Date Temp Pulse Resp B/P (MAP) Pulse Ox O2 O2 Flow FiO2 Time Delivery Rate 12/15/18 97.8 70 17 126/75 99 Room Air 17:30 (92) Exam Gastrointestinal: tender (right lower quadrant ) Medications Medications Current Medications Sodium Chloride 1,000 ml @ 75 mls/hr [id number] IV ; Start 12/15/18 at 19:03 IV Flush (NS 3 ml) 3 ml PER PROTOCOL IV ; Start 12/15/18 at 19:30 Ondansetron HCl (Zofran Inj) 4 mg Q4H PRN IV NAUSEA AND/OR VOMITING; Start 12/15/18 at 19:30 Acetaminophen (Tylenol Tab) 650 mg Q6H PRN PO PAIN LEVEL 1-3 OR FEVER; Start 12/15/18 at 19:30 Pantoprazole (Protonix Iv) 40 mg DAILY@06 IV ; Start 12/16/18 at 06:00 Piperacillin Sod/ Tazobactam Sod 100 ml @ 200 mls/hr TID IVPB ; Start 12/15/18 at 21:00 Morphine Sulfate (morphine SULFATE (PF)) 2 mg Q4H PRN IV SEVERE PAIN LEVEL 7- 10; Start 12/15/18 at 19:30 DORY GRIFFITH MD Dec 15, 2018 20:12
[2018-12-15] MEDS ORDERED: PIPER-TAZO 3.375 GM IV (PMX) 100 ML IVPB SCH (21:00)
[2018-12-15] MEDS ORDERED: BUPIVACAINE 0.5%/EPI (SDV) 30 ML INJ ONE ×2 (21:30→21:33)
--- NOTE | 2018-12-15 22:09 | PREAC ---
Date/Time of Note Date/Time of Note DATE: 12/15/18 TIME: 22:08 Anesthesia Eval and Record Evaluation Time Pre-Procedure Interview DATE: 12/15/18 TIME: 22:08 Age 63 Sex male NPO: 8 hrs Preoperative diagnosis ACUTE APPENDICITIS Planned procedure LAP APPY Past Medical History Past Medical History: None Surgery & Anesthesia Issues No known issue Meds Anticoagulation: No Beta Cornelia within 24 hr: No Reason Beta Cornelia not given: Pt. not on B-Cornelia Discontinued Scripts Ibuprofen* (Motrin*) 600 Mg Tab, 600 MG PO Q6H PRN for PAIN AND OR ELEVATED TEMP, #30 TAB Prov:JEAN-CLAUDE SANCHEZ 06/24/17 Current Medications Sodium Chloride 1,000 ml @ 75 mls/hr [id number] IV ; Start 12/15/18 at 19:03 IV Flush (NS 3 ml) 3 ml PER PROTOCOL IV ; Start 12/15/18 at 19:30 Ondansetron HCl (Zofran Inj) 4 mg Q4H PRN IV NAUSEA AND/OR VOMITING; Start 12/15/18 at 19:30 Acetaminophen (Tylenol Tab) 650 mg Q6H PRN PO PAIN LEVEL 1-3 OR FEVER; Start 12/15/18 at 19:30 Pantoprazole (Protonix Iv) 40 mg DAILY@06 IV ; Start 12/16/18 at 06:00 Piperacillin Sod/ Tazobactam Sod 100 ml @ 200 mls/hr TID IVPB ; Start 12/15/18 at 21:00 Morphine Sulfate (morphine SULFATE (PF)) 2 mg Q4H PRN IV SEVERE PAIN LEVEL 7- 10; Start 12/15/18 at 19:30 Meds reviewed: Yes Allergies Coded Allergies: No Known Allergy (Unverified , 12/15/18) Allergies Reviewed: Yes Labs/Studies Labs Reviewed: Reviewed by anesthesiologist Result Diagram: 12/15/18 1400 12/15/18 1400 Laboratory Tests 12/15/18 14:00 test: N/A Studies: ECG (SR), CXR (N/A) Pre-procedure Exam Last vitals Vital Signs Date Temp Pulse Resp B/P (MAP) Pulse Ox O2 O2 Flow FiO2 Time Delivery Rate 12/15/18 98.2 71 20 131/75 97 19:43 (93) 12/15/18 Room Air 17:30 Airway: Adequate mouth opening Mallampati: Mallampati I Teeth: Normal Lung: Normal Heart: Normal ASA Physical Status ASA physical status: 1 Emergency: None Planned Anesthetic Nerve block: TAP (bilateral) Planned Pain Management Single shot nerve block Pre-operative Attestations Prior to commencing anesthesia and surgery, the patient was re-evaluated, there was verification of: *The patient's identity *The results of appropriate recent lab work and preoperative vital signs *The above evaluation not changing prior to induction *Anesthetic plan, risk benefits, alternative and complications discussed with patient/family; questions answered; patient/family understands, accepts and wishes to proceed. LADONNA CONNORS MD Dec 15, 2018 22:09
[2018-12-15] MEDS ORDERED: PROPOFOL 20 ML ONE ×2 (22:13→23:27)
[2018-12-15] MEDS ORDERED: ROCURONIUM 50 MG INJ ONE (22:13)
[2018-12-15] MEDS ORDERED: METOCLOPRAMIDE 10 MG INJ ONE (22:14)
[2018-12-15] MEDS ORDERED: ROPIVACAINE 0.5 % 30 ML VIAL ONE (22:14)
[2018-12-15] MEDS ORDERED: KETOROLAC 30 MG INJ ONE (22:14)
[2018-12-15] MEDS ORDERED: ONDANSETRON 4 MG INJ ONE (22:14)
[2018-12-15] MEDS ORDERED: DIPHENHYDRAMINE 50 MG INJ IV PRN (22:30)
[2018-12-15] MEDS ORDERED: LABETALOL HCL 20MG INJ IV PRN (22:30)
[2018-12-15] MEDS ORDERED: MEPERIDINE 25 MG INJ IV PRN (22:30)
[2018-12-15] MEDS ORDERED: hydrALAzine 20 MG INJ IV PRN (22:30)
[2018-12-15] MEDS ORDERED: HYDROmorphONE 1 MG/5 ML IV SYRINGE IV PRN ×3 (22:30)
[2018-12-15] MEDS ORDERED: CEFAZOLIN 1 GM INJ ONE (22:37)
--- NOTE | 2018-12-15 23:22 | OPR ---
Date/Time of Note Date/Time of Note DATE: 12/15/18 TIME: 23:17 Operative Report Free Text/Dictation Operative report Procedure Date: Dec 15, 2018 Preoperative Diagnosis Acute appendicitis Postoperative Diagnosis Same Operation/Procedure Performed Laparoscopic appendectomy Surgeon Dory Mehta MD see signature line Export Freight Clerk None Anesthesia Type: general Anesthesiologist: LADONNA CONNORS MD Estimated Blood Loss: 0 - 10 ml's Transfusion none Specimen Appendix Grafts/Implants none Tubes/Drains None Complications none Pt Condition Post Procedure: stable Disposition: PACU Indications Patient presented to the emergency room with 24-36-hour history of worsening abdominal pain migrating to the right lower quadrant on evaluation in the emergency room he was tender in the right lower quadrant CAT scan showed a markedly dilated appendix with possible appendicolith within it surgical consultation was requested I saw the patient and recommended that he undergo u rgent laparoscopic appendectomy with the possibility of open. The risk benefits alternatives were discussed patient agreed to proceed after details of procedure informed consent obtained Procedure Description Patient brought to the operating room placed in supine position general anesthesia administered with endotracheal intubation the patient was prepped and draped in standard sterile fashion orogastric tube inserted by anesthesia timeout was completed. A varies needle in the left upper quadrant was inserted at Rg's point insufflation delivered to maintain pneumoperitoneum at 15 mmHg throughout the procedure small stab incision was made just above the umbilicus and a 5 mm trocar was inserted under direct visualization with 30 degree 5 mm laparoscope. The Veress needle was identified there were no injuries and the varies needle was removed. Under direct visualization an infraumbilical 5 more trocar and a suprapubic 12 mm trocar were inserted. The cecum was somewhat red retroperitoneal and attachments along the cecum had to be divided with hook cautery. The appendix was noted to be markedly thickened and dilated with contracted in the mesoappendix. The tip of the appendix was able to be elevated out of the cavity in the retroperitoneum. The mesoappendix is markedly thickened and there was a desmoplastic reaction as the appendix was bluntly dissected off the retroperitoneal attachments. Once the appendix was elevated down to the base of the appendix a window was made in the mesoappendix and [place] 35 mm vascular load was used to apply across the base of the appendix. A second application along the mesoappendix staple lines were inspected for hemostasis and were controlled with monopolar cautery. A gauze was inserted and used to dry up some bleeding had been caused during the dissection. Bleeding was completely controlled. A specimen bag was inserted through the suprapubic port the appendix placed and this was brought through the port through the wound. The port was reinserted with gauze was retrieved final inspection showed no additional bleeding or concerns. The pneumoperitoneum was allowed to escape the trochars were removed the skin incision because closed by 4-0 Monocryl Dermabond for dressing patient was explained the operative brought recovery in stable condition Sponge needle count was correct x2 DORY MEHTA MD Dec 15, 2018 23:22
[2018-12-15] MEDS ORDERED: NEOSTIGMINE 3 MG/3 ML SYRINGE ONE (23:25)
[2018-12-15] MEDS ORDERED: METOPROLOL 5 MG INJ ONE (23:25)
[2018-12-15] MEDS ORDERED: HYDROmorphONE 0.5 MG/0.5 ML SYG IV PRN (23:30)
[2018-12-15] MEDS ORDERED: KETOROLAC 15 MG INJ IV PRN (23:30)
[2018-12-15] MEDS ORDERED: HYDROCODONE/APAP (10/325) TAB PO PRN (23:30)
[2018-12-16] VITALS (20 sets, daily range): BP systolic 111–160; BP diastolic 62–83; PULSE 64–84; RESP 15–20
[2018-12-16] MEDS: D5-NS + KCL 20 MEQ 1,000 ML IV SCH ×3 (01:36→13:14)
[2018-12-16] MEDS: PIPER-TAZO 3.375 GM IV (PMX) 100 ML IVPB SCH ×4 (01:42→21:51)
[2018-12-16] MEDS: PANTOPRAZOLE 40 MG INJ IV SCH (06:14)
--- NOTE | 2018-12-16 09:39 | PAC ---
Date/Time of Note Date/Time of Note DATE: 12/16/18 TIME: 09:38 Post-Anesthesia Notes Post-Anesthesia Note Last documented vital signs Vital Signs Date Temp Pulse Resp B/P (MAP) Pulse Ox O2 O2 Flow FiO2 Time Delivery Rate 12/16/18 99.0 76 20 127/77 98 08:00 (94) 12/16/18 Room Air 04:20 12/16/18 3.0 00:39 Activity: WNL Respiratory function: WNL Cardiovascular function: WNL Mental status: Baseline Pain reasonably controlled: Yes Hydration appropriate: Yes Nausea/Vomiting absent: No LADONNA CONNORS MD Dec 16, 2018 09:39
[2018-12-16] MEDS: CEPASTAT LOZENGE MT PRN (10:43)
--- NOTE | 2018-12-16 15:27 | QN ---
Documentation Comment seen and examined LUCIANA BAILEY MD Dec 16, 2018 15:27
--- NOTE | 2018-12-16 15:32 | QN ---
Documentation Comment seen and examined LUCIANA BAILEY MD Dec 16, 2018 15:32
[2018-12-16] MEDS: DEXTROSE 5%-0.45% NACL 1,000 ML IV SCH (16:16)
--- NOTE | 2018-12-16 16:45 | HP ---
DATE OF ADMISSION: 12/15/2018 REASON FOR ADMISSION: Acute appendicitis. HISTORY OF PRESENTING ILLNESS: This is a 63-year-old male with no past medical history who presented to the emergency department because of right lower quadrant pain intermittently. The patient said t he pain started a few days ago on Friday; however, he thought that the pain would go away, but patien renetta's pain never went away and came to the emergency department. According to the patient, he has also felt this pain a couple of years ago. Denied any nausea, vomiting, diarrhea, fever, chills, hematem esis, melena, any bright red blood per rectum. On admission, vital signs show temperature 97.8, puls e 95, respirations 16, blood pressure 134/81, saturating 98%. White count 8.5. BMP within normal li rosi. The patient had a CT of the abdomen and pelvis that showed acute appendicitis. No definite abs cess is seen. Mild enlargement prostate, small bilateral fat containing inguinal hernia. The patien t was seen by Dr. Mehta and had laparoscopic appendectomy that was performed on . Currently, t he patient is not in pain and is much improved now. PAST MEDICAL HISTORY: None. ALLERGIES: NONE. SOCIAL HISTORY: Occasionally drinks alcohol. Denies any history of smoking, any recreational drug u se. FAMILY HISTORY: Noncontributory. REVIEW OF SYSTEMS: The patient has some mild right lower abdominal pain and incisional pain. Denies any nausea, vomiting, diarrhea, any headache, any blurry vision. Denies any hematemesis, any melena , any bright red rectum. PHYSICAL EXAMINATION: VITAL SIGNS: Currently, blood pressure 132/62, afebrile, heart rate 84, respirations 18, saturating 96%. GENERAL: The patient is awake, alert, oriented, does not appear to be in any acute distress. HEENT: Pupils are equal, round, reactive to light. NECK: Supple. No JVD. HEART: Regular rate and rhythm. LUNGS: Clear to auscultation bilaterally. ABDOMEN: Some tenderness present at the incisional site. EXTREMITIES: No clubbing, cyanosis or edema. LABORATORY DATA: White count 9.4, hemoglobin 13.9, platelet count 243. BMP within normal limit. ASSESSMENT AND PLAN: This is a 63-year-old male with: 1. Acute appendicitis status post laparoscopic appendectomy. 2. Mildly enlarged prostate. 3. Small bilateral fat inguinal hernias. PLAN: At this period of time, the patient is status post laparoscopic appendectomy. We will advance the diet of the patient as tolerated. Continue with the antibiotics, pain control. Rest of the asim atment will depend on the patient's hospitalization course. Dictated By: LUCIANA CARLIN/NADEGE Conf#: [id number] DID#: [id number] CC: DORY MEHTA MD; SHAYE LIRIANO MD;*EndCC*
[2018-12-17 02:00] VITALS: BP 112/67; PULSE 70; RESP 18
[2018-12-17] MEDS: PIPER-TAZO 3.375 GM IV (PMX) 100 ML IVPB SCH ×2 (05:25→14:18)
[2018-12-17] MEDS: PANTOPRAZOLE 40 MG INJ IV SCH (05:25)
[2018-12-17] MEDS: CEPASTAT LOZENGE MT PRN ×2 (05:31→08:48)
[2018-12-17 08:00] VITALS: BP 128/77; PULSE 82; RESP 20
[2018-12-17] MEDS: DEXTROSE 5%-0.45% NACL 1,000 ML IV SCH ×2 (12:00→15:22)
[2018-12-17 14:00] VITALS: BP 142/64; PULSE 78; RESP 20
--- NOTE | 2018-12-17 15:54 | PDOCDIS ---
Discharge Instructions DIAGNOSIS Discharge Diagnosis Acute appendicitis s/p lap appendectomy CONDITION [id number] Patient Condition: [id number] Fair HOME CARE INSTRUCTIONS: [id number] Diet Instructions: [id number] Regular ACTIVITY: [id number] Activity Restrictions: [id number] Slowly Increase Activity Rest between Activity Avoid heavy lifting FOLLOW UP/APPOINTMENTS Follow-up Plan f/u Dr Mehta in 1 week Return to ER if has severe abdominal pain nausea vomiting fevers or chills LUCIANA BAILEY MD Dec 17, 2018 15:54
[2018-12-17] MEDS ORDERED: IBUP-1561 PO (15:55)
--- NOTE | 2018-12-17 16:23 | DS ---
DATE OF ADMISSION: 12/15/2018 DATE OF DISCHARGE: 12/17/2018 HISTORY OF PRESENT ILLNESS AND HOSPITAL COURSE: This is a 63-year-old male with a remote past medica l history who presented to the emergency department with right lower quadrant pain intermittently. T he pain started a few days ago on Friday. Thought the pain would go away. The pain never went away. He came to the emergency department. On admission, white count was 8.5. CT of the abdomen and pel vis showed acute appendicitis, no definite abscess, mild enlarged prostate, small bilateral fat ingui nal hernia. The patient was seen by Dr. Mehta and went for laparoscopic appendectomy. Postop, the patient was feeling much better, was advanced diet slowly. White count was stable. Vital signs stab le, currently stable. To be started on a regular diet, and per Dr. Mehta, is stable to be discharge d home. FINAL DISCHARGE DIAGNOSES: 1. Acute appendicitis, status post laparoscopic appendectomy. 2. Mildly enlarged prostate, asymptomatic. 3. Small bilateral fat inguinal hernias. The patient was instructed to follow up with Dr. Mehta in about 1 week. The patient was instructed to return to the ER if he has severe abdominal pain, nausea, vomiting, fevers and chills. CONDITION AT DISCHARGE: Stable. DISCHARGE MEDICATIONS: Motrin 400 mg p.o. q.6 p.r.n. pain. Dictated By: LUCIANA CARLIN/NADEGE Conf#: [id number] DID#: [id number] CC: SHAYE LIRIANO MD;*End*
== END 2018-12-17 18:53 | disposition home or self-care (01) | DRG 343 ==
LOC: E/R 11:37 → PP2 17:25
PROVIDERS: ADMIT Internal Medicine Nephrology; ATTEND Internal Medicine Nephrology
PROC: 0DTJ4ZZ Resection of Appendix, Percutaneous Endoscopic Approach (ICD-10-PCS; principal; 2018-12-15 23:00)
DX: K35.80 Unspecified acute appendicitis (principal); N40.0 Benign prostatic hyperplasia without lower urinary tract symptoms; K40.90 Unilateral inguinal hernia, without obstruction or gangrene, not specified as recurrent
CPT/HCPCS: 36415; 74176; 80048; 80053; 81003; 83690; 85025; 88304; 96374; C9113; J0690; J1170; J1885; J2175; J2405; J2543; J2710; J2765; J2795; J3480; J7030; J7042